=== PATIENT | male | born 1970 ===

== ENCOUNTER 2019-11-05 08:44 | Outpatient (CLI) | payer BC | END 2019-11-05 23:59 | disposition home or self-care (01) | LOC: CVU 08:44 | PROVIDERS: ATTEND Internal Medicine Cardiovascular Disease | DX: R94.30 Abnormal result of cardiovascular function study, unspecified (principal) | CPT/HCPCS: 93306 ==

== ENCOUNTER → 2020-12-08 | Outpatient (CLI) | payer BC | END | disposition home or self-care (01) | LOC: CFH 08:56 | PROVIDERS: ATTEND Internal Medicine Cardiovascular Disease | DX: Z13.6 Encounter for screening for cardiovascular disorders (principal); E78.2 Mixed hyperlipidemia; I25.10 Atherosclerotic heart disease of native coronary artery without angina pectoris | CPT/HCPCS: 75571 ==